=== PATIENT | female | born 1955 | race Caucasian/White ===

== ENCOUNTER 2019-02-15 10:17 | Day surgery (SDC) | payer BC ==
[2019-02-15] MEDS: Lactated Ringers 1,000 ML IV SCH (10:44)
[2019-02-15] MEDS: Sodium Chloride 0.9% 10 ML Syringe FLUSH PRN (10:44)
[2019-02-15] MEDS ORDERED: Propofol 200 MG/20 ML SDV ONE (11:30)
[2019-02-15] MEDS ORDERED: Midazolam 1 MG/ML 2 ML SDV ONE (11:30)
--- NOTE | 2019-02-15 11:45 | PCM.PN ---
- General Info Date of Service: 02/15/19 - Review of Systems Systems Review Comment:: 63-year-old female referred for colonoscopy. Her last colonoscopy was over 10 years ago. She denies any recent change in bowel habits although has been having some abdominal pain. I discussed the proposed colonoscopy with the patient. Her recent history and physical is reviewed and no significant changes are noted. The patient agrees to proceed today excepting risks. - Patient Data Vitals - Most Recent: Last Vital Signs Temp 97.6 F 02/15/19 10:42 Pulse 74 02/15/19 10:42 Resp 16 02/15/19 10:42 BP 138/71 02/15/19 10:42 Pulse Ox 94 L 02/15/19 10:42 Weight - Most Recent: 104.326 kg Med Orders - Current: Current Medications Lactated Ringer's (Ringers, Lactated) 1,000 mls @ 50 mls/hr IV ASDIRECTED KATIE Last Admin: 02/15/19 10:44 Dose: 50 mls/hr Sodium Chloride (Saline Flush) 10 ml FLUSH Q8HR PRN PRN Reason: keep vein open Last Admin: 02/15/19 10:44 Dose: 10 ml Discontinued Medications Midazolam HCl (Versed 1 Mg/Ml) Confirm Administered Dose 2 mg .ROUTE .STK-MED ONE Stop: 02/15/19 11:31 Propofol (Diprivan 20 Ml) Confirm Administered Dose 200 mg .ROUTE .STK-MED ONE Stop: 02/15/19 11:31 - Problem List Review Problem List Initiated/Reviewed/Updated: Yes - My Orders Last 24 Hours: My Active Orders 02/14/19 15:11 Resuscitation Status Routine 02/15/19 10:30 Peripheral IV Care [RC] . DIRECTED Lactated Ringers [Ringers, Lactated] 1,000 ml IV ASDIRECTED Sodium Chloride 0.9% [Saline Flush] 10 ml FLUSH Q8HR PRN Peripheral IV Insertion Adult [OM.PC] Routine 02/15/19 11:00 Patient to Empty Bladder [RC] ASDIRECTED 02/15/19 11:30 Verify Patient Consent Obtain [RC] ASDIRECTED 02/15/19 Breakfast Nothing Per Oral Diet [DIET] - Assessment Assessment:: Colon cancer screening - Plan Plan:: Colonoscopy
--- NOTE | 2019-02-15 12:18 | PCM.OPNOTE ---
- General Post-Op/Procedure Note Date of Surgery/Procedure: 02/15/19 Operative Procedure(s): Colonoscopy Findings: Mild Sigmoid Diverticulosis Large External Hemorrhoids Pre Op Diagnosis: Colon Cancer Screening Post-Op Diagnosis: Sigmoid Diverticulosis. Hemorrhoids Anesthesia Technique: MAC Primary Surgeon: Aleks Acuna Pathology: none EBL in mLs: 0 Complications: None Condition: Good
--- NOTE | 2019-02-15 13:06 | OR ---
DATE OF SURGERY: 02/15/2019 SURGEON: Aleks Acuna MD PREOPERATIVE DIAGNOSIS: Colon cancer screening, family history of colon polyps. POSTOPERATIVE DIAGNOSIS: Sigmoid diverticulosis and hemorrhoids. OPERATION PERFORMED: Colonoscopy. INDICATIONS FOR SURGERY: This 63-year-old female is referred for colonoscopy. It has been over 10 years since her last colonoscopy. She also has a family history of colon polyps in a sister. FINDINGS: No polyps were seen on today's exam. The patient does have a mild degree of sigmoid diverticulosis and moderate to large size external hemorrhoids. The exam was otherwise normal. DESCRIPTION OF PROCEDURE: The patient was taken to the operating room. She was given intravenous sedation and with her in the left lateral decubitus position, digital rectal exam was performed showing no rectal masses. The Olympus colonoscope was inserted into the rectum. Retroflexed examination of the rectal canal was performed. The scope was then carefully advanced under direct visualization through the entire length of the colon until the cecum was reached. Cecal acquisition was confirmed by noting the normal internal cecal anatomy including the appendiceal orifice and ileocecal valve. The light was also noted to transilluminate the abdominal wall in the right lower quadrant. After examining the cecum, the scope was slowly withdrawn sequentially re- examining the colonic segments until the entire colon and rectum had been fully examined. The scope was removed and the patient was taken from the operating room in satisfactory condition. ESTIMATED BLOOD LOSS: Zero. COMPLICATIONS: None. PROGNOSIS: Good. /[id number]/MODL
== END 2019-02-15 13:30 | disposition home or self-care (01) ==
LOC: KA.SDS 10:17
PROVIDERS: ATTEND Surgery
DX: K57.30 Diverticulosis of large intestine without perforation or abscess without bleeding (principal); K64.4 Residual hemorrhoidal skin tags; K21.9 Gastro-esophageal reflux disease without esophagitis; I10 Essential (primary) hypertension; E78.00 Pure hypercholesterolemia, unspecified; F32.9 Major depressive disorder, single episode, unspecified; Z91.09 Other allergy status, other than to drugs and biological substances; Z87.891 Personal history of nicotine dependence; Z83.71 Family history of colonic polyps; Z79.899 Other long term (current) drug therapy
CPT/HCPCS: J2250; J7120

== ENCOUNTER 2024-03-22 08:43 | Day surgery (SDC) | payer MEDICARE ==
[2024-03-22] MEDS ORDERED: Sodium Chloride 0.9% 10 ML Syringe FLUSH PRN (08:45)
[2024-03-22] MEDS: Lactated Ringers 1,000 ML IV SCH (09:19)
[2024-03-22] MEDS ORDERED: Glycopyrrolate 0.2 MG/ML SDV ONE (09:43)
[2024-03-22] MEDS ORDERED: Midazolam 1 MG/ML 2 ML SDV ONE (09:43)
[2024-03-22] MEDS ORDERED: Lidocaine 2% 100 MG/5 ML Syringe ONE (09:43)
[2024-03-22] MEDS ORDERED: Propofol 200 MG/20 ML SDV ONE (09:43)
[2024-03-22 11:32] VITALS: BP 136/66; PULSE 75
== END 2024-03-22 12:33 | disposition home or self-care (01) ==
LOC: KA.SDS 08:43
PROVIDERS: ATTEND Surgery
DX: Z12.11 Encounter for screening for malignant neoplasm of colon (principal); K21.00 Gastro-esophageal reflux disease with esophagitis, without bleeding; K31.7 Polyp of stomach and duodenum; K57.30 Diverticulosis of large intestine without perforation or abscess without bleeding; K64.8 Other hemorrhoids; K64.4 Residual hemorrhoidal skin tags; I10 Essential (primary) hypertension; E78.00 Pure hypercholesterolemia, unspecified; F32.A Depression, unspecified; Z79.899 Other long term (current) drug therapy; Z88.8 Allergy status to other drugs, medicaments and biological substances; Z80.0 Family history of malignant neoplasm of digestive organs
CPT/HCPCS: 00813; J1596; J2250; J2704; J3490; J7120

== ENCOUNTER 2024-11-01 21:00 | Emergency (ER) | payer MEDICARE | END 2024-11-01 21:52 | disposition home or self-care (01) | LOC: KA.ED 21:00 | DX: R04.0 Epistaxis (principal); E78.00 Pure hypercholesterolemia, unspecified; I10 Essential (primary) hypertension; Z91.048 Other nonmedicinal substance allergy status; Z79.899 Other long term (current) drug therapy | CPT/HCPCS: 99283 ==

== ENCOUNTER 2024-11-04 14:57 | Emergency (ER) | payer MEDICARE | END 2024-11-04 16:00 | disposition home or self-care (01) | LOC: KA.ED 14:57 | DX: R04.0 Epistaxis (principal); I10 Essential (primary) hypertension; E78.00 Pure hypercholesterolemia, unspecified; Z91.048 Other nonmedicinal substance allergy status; Z79.899 Other long term (current) drug therapy | CPT/HCPCS: 99283 ==